=== PATIENT | male | born 1950 | race Caucasian/White ===

== ENCOUNTER 2022-09-07 09:12 | Outpatient (REF) | payer MEDICARE, SELFPAY ==
--- NOTE | ~2022-09-07 | MR_ITS ---
EXAMINATION: MR CERVICAL SPINE WITHOUT CONTRAST CLINICAL INFORMATION: Left neuropathic changes with neck position COMPARISON: None TECHNIQUE: MRI of the cervical spine was obtained using routine sequences without contrast. FINDINGS: Cervical straightening from C2 to C4. No significant spondylolisthesis. No suspicious marrow signal or focal osseous lesion. The vertebral body heights are maintained. Disc desiccation and height loss at C5-C6 and to a lesser extent C6-C7. The cervical spinal cord is normal in caliber and signal Limited evaluation of the soft tissues of the neck without demonstrated abnormalities. The flow voids of the major cervical vessels are maintained. Normal appearance of the cervicomedullary junction and visualized posterior fossa. There is a small left atlantoaxial axial joint effusion. Mild arthrosis of the atlantodental joint. SPINAL LEVELS: C2-C3: Mild facet arthropathy. No significant spinal canal or neural foraminal narrowing C3-C4: No significant spinal canal or neural foraminal narrowing C4-C5: Small central disc protrusion. No significant spinal canal or neural foraminal narrowing C5-C6: Small disc protrusion. Mild facet and uncovertebral hypertrophy. Moderate bilateral neural foraminal narrowing. No significant spinal canal stenosis C6-C7: Small disc protrusion. No significant spinal canal or neural foraminal narrowing C7-T1: No significant spinal canal or neural foraminal narrowing MR/MR cervical spine wo con IMPRESSION: Mild cervical spondylosis without significant spinal canal stenosis, cord compression, or cord signal abnormality. There is moderate bilateral neural foraminal narrowing at C5-C6.
== END 2022-09-07 09:13 | disposition home or self-care (01) ==
LOC: HO.MRI 09:12
PROVIDERS: PCP Internal Medicine; Visit Provider Internal Medicine Nephrology
DX: M47.812 Spondylosis without myelopathy or radiculopathy, cervical region (principal)
CPT/HCPCS: 72141